=== PATIENT | male | born 1955 | race Caucasian/White ===

== ENCOUNTER 2018-03-09 17:53 | Emergency (ER) | payer BC ==
[~2018-03-09] VITALS: Ht 177.8 cm; Wt 128.5 kg
[~2018-03-09 17:53] MED LIST: ADVIL200 MG PO; ALTACE10 MG PO; ATENOLOL50 MG PO; LEVAQUIN750 MG PO; MULTIVITAMIN1 EAC2 PO; TAMIFLU75 MG PO; TYLENOL REGULA325 MG PO
[2018-03-09 18:28] VITALS: BP 106/85
[2018-03-09 20:04] LABS: HEMATOCRIT 41.3 % (38.0-50.0); HEMOGLOBIN 14.9 G/DL (12.5-16.6); MCH 33.3 PG (29.0-34.0); MCHC 36.1 G/DL (30.0-36.0); MCV 92.2 FL (86-99); PLATELET COUNT 238 K/uL (156-360); RBC DIS.WIDTH-CV 11.4 % (11.8-14.6); RBC DIS.WIDTH-SD 38.9 % (39-53); RED BLOOD COUNT 4.48 M/uL (4.00-5.50); WHITE BLOOD COUNT 6.8 K/uL (4.1-10.2)
[2018-03-09 20:16] LABS: APPEARANCE CLEAR ((CLEAR)); BILIRUBIN NEGATIVE; BLOOD NEGATIVE; COLOR YELLOW ((YELLOW)); GLUCOSE (STRIP) NEGATIVE; KETONES 5; LEUKOCYTES TRACE; NITRITE NEGATIVE; PROTEIN (STRIP) NEGATIVE; SPECIFIC GRAVITY 1.023 (1.000-1.030)
[2018-03-09 20:17] LABS: CHLORIDE 106 mEq/L (99-109); POTASSIUM 3.8 mEq/L (3.7-5.4); SODIUM 141 mEq/L (136-147)
[2018-03-09 20:19] LABS: GLUCOSE 103 mg/dL (70-99)
[2018-03-09 20:20] LABS: TOTAL PROTEIN 7.1 g/dL (6.4-8.3)
[2018-03-09 20:21] LABS: TOTAL BILIRUBIN 0.3 mg/dL (0.0-1.0)
[2018-03-09 20:23] LABS: ALKALINE PHOSPHATASE 79 IU/L (3-129); CREATININE 0.9 mg/dL (0.6-1.3); GFR ESTIMATE (CALCULATED) > 59 mL/min/ (58.99-99999)
[2018-03-09 20:24] LABS: UREA NITROGEN (BUN) 16 mg/dL (9-23)
[2018-03-09 20:25] LABS: AST (GOT) 15 IU/L (2-34)
[2018-03-09 20:26] LABS: ALT (GPT) 22 IU/L (3-49)
[2018-03-09 20:31] LABS: BACTERIA NONE SEEN /HPF; EPITHELIAL CELLS RARE /HPF; MUCUS TRACE /LPF; RED BLOOD CELLS 0-5 /HPF (0-5); UCUL ADDED? NO; WHITE BLOOD CELLS 0-5 /HPF (0-5)
== END 2018-03-09 21:31 | disposition left against medical advice (07) ==
LOC: EME 17:53
PROVIDERS: Physician Assistant Medical
DX: K59.00 Constipation, unspecified (principal); I10 Essential (primary) hypertension; F17.200 Nicotine dependence, unspecified, uncomplicated; Z87.442 Personal history of urinary calculi
CPT/HCPCS: 74019; 80053; 81003; 85027; 99281; 99283